=== PATIENT | male | born 1955 | race Caucasian/White ===

== ENCOUNTER 2018-10-31 22:25 | Observation (INO) ==
[2018-10-31 22:53] LABS: ABG Base Excess 1.5 mmol/L (-2.4-2.3); ABG HCO3 25.8 mmhg (22.0-26.0); ABG Oxygen Saturation 95 % (90-100); ABG PCO2 39.5 mmhg (35.0-45.0); ABG PH 7.43 mmol/L (7.35-7.45); ABG PO2 66.8 mmhg (80-100)
[2018-10-31 22:54] LABS: Allen's Test Y; Oxygen 2.5 %
[2018-10-31 22:59] LABS: Basophils # 0.1 K/mm3 (0-0.2); Basophils % 0.3 % (0.1-2.0); Eosinophils # 0.2 K/mm3 (0.0-0.4); Eosinophils % 1.1 % (0.1-12.0); Hematocrit 52.1 % (42.0-52.0); Hemoglobin 16.2 g/dL (14.1-18.0); Lymphocytes # 0.6 K/mm3 (0.7-4.5); Mean Corpuscular Volume 94.9 fl (80-94); Mean Platelet Volume 8.2 fl (7.4-10.4); Monocytes # 0.6 K/mm3 (0.1-1.0); Monocytes % 3.7 % (1.7-9.3); Neutrophils # 13.7 K/mm3 (1.8-7.8); Neutrophils % 90.8 % (37.0-80.0); Platelet Count 287 K/mm3 (142-424); Red Cell Distribution Width 14.3 % (11.5-17.5); White Blood Count 15.1 K/mm3 (4.8-10.8)
[2018-10-31 23:13] LABS: Alanine Aminotransferase 26 U/L (12-78); Albumin Level 4.2 gm/dL (3.4-5.0); Alkaline Phosphatase 87 U/L (46-116); Anion Gap 14.7 mEq/L (5-15); Aspartate Amino Transferase 24 U/L (15-37); Blood Urea Nitrogen 14 mg/dL (7-18); Carbon Dioxide 29 mmol/L (21.0-32.0); Chloride 90 mmol/L (98-107); Globulin 4.2 gm/dl (1.3-3.2); Glucose 98 mg/dL (74-106); Sodium 129 mmol/L (136-145); Total Protein,Serum 8.4 gm/dL (6.4-8.2)
[2018-11-01 00:05] LABS: Anisocytosis 1+; Eosinophils % 3 % (0-3); Lymphocytes % 5 % (10-50); Monocytes % 4 % (2-9); Neutrophils % 88 % (42-76); Total Cells Counted 100
--- NOTE | 2018-11-01 00:51 | Emergency Department Note ---
ED Disposition Clinical Impression: Tobacco use disorder, Acute exacerbation of chronic obstructive airways disease, SIRS (systemic inflammatory response syndrome), Hyponatremia Community acquired pneumonia Qualifiers: Laterality: left Lung location: lower lobe of lung Qualified Code(s): J18.1 - Lobar pneumonia, unspecified organism Disposition: Admitted as Observation Condition on Discharge: Good - Critical Care Critical Care Time: No Attestation: On 10/31/18, the high probability of a clinically significant, sudden or life threatening deterioration of the following system(s) required my full and direct attention, intervention and personal management. The time I documented below is in addition to time spent performing reported procedures but includes the following listed in this critical care notation. Medical Decision Making - Medical Records Medical records reviewed: Yes: I reviewed the patient's medical records. - Jovanni Inquiry Pt receiving controlled substance: No Vital Signs: 10/31/18 22:38 11/01/18 00:43 Temperature 101.1 F H 98.4 F Temperature Source Oral Oral Pulse Rate [Right Brachial] 128 H 93 H Respiratory Rate 42 H 17 Blood Pressure [Right Arm] 155/69 H 108/81 L Blood Pressure Mean [Right Arm] 97 90 Blood Pressure Source [Right Arm] Automatic Cuff Automatic Cuff Blood Pressure Position [Right Arm] Supine 02 Sat by Pulse Oximetry 87 L 94 L Oxygen Delivery Method Room Air Room Air - Lab Data Lab results reviewed: Yes: I reviewed the patient's lab results. Lab Results 10/31/18 22:43: Influenza Type A Ag Negative, Influenza Type B Ag Negative 10/31/18 22:46: WBC 15.1 H, RBC 5.50, Hgb 16.2, Hct 52.1 H, MCV 94.9 H, MCH 29.4, MCHC 31.0 L, RDW 14.3, Plt Count 287, MPV 8.2, Neut % (Auto) 90.8 H, Lymph % (Auto) 4.0 L, [place] % (Auto) 3.7, Eos % (Auto) 1.1, Baso % (Auto) 0.3, Neut # (Auto) 13.7 H, Lymph # (Auto) 0.6 L, [place] # (Auto) 0.6, Eos # (Auto) 0.2, Baso # (Auto) 0.1, Total Counted 100, Neutrophils % (Manual) 88 H, Lymphocytes % (Manual) 5 L, Monocytes % (Manual) 4, Eosinophils % (Manual) 3, Platelet Darling mate Normal, Anisocytosis 1+ 10/31/18 22:46: Sodium 129 L, Potassium 4.7, Chloride 90 L, Carbon Dioxide 29, Anion Gap 14.7, BUN 14, Creatinine 0.78, Estimated Creat Clear 62, Estimated GFR 100, Est GFR ( Amer) 121, Glucose 98, Calcium 10.0, Total Bilirubin 1.0, AST 24, ALT 26, Alkaline Phosphatase 87, Troponin I < 0.02, Total Protein 8.4 H, Albumin 4.2, Globulin 4.2 H, Albumin/Globulin Ratio 1.0 L 10/31/18 22:46: Lactate 1.2 10/31/18 22:52: Specimen Source R/r, O2 % 2.5, ABG pH 7.43, ABG pCO2 39.5, ABG pO2 66.8 L, ABG HCO3 25.8, ABG Total CO2 27.0, ABG O2 Saturation 95, ABG Base Excess 1.5, Momo Test Y Result diagrams: 10/31/18 22:46 10/31/18 22:46 Orders (Tests/Meds): ED MEDICATIONS Generic Name Dose Route Start Last Admin Trade Name Freq PRN Reason Stop Dose Admin Azithromycin 500 mg/ Sodium 250 mls @ 250 mls/hr 11/01/18 01:15 11/01/18 01:21 Chloride IV 11/15/18 01:14 250 mls/hr Q24H THAI Administration Protocol Ceftriaxone Sodium 1 gm/ 100 mls @ 200 mls/hr 11/01/18 01:15 11/01/18 01:08 Sodium Chloride IV 11/15/18 01:14 200 mls/hr Q24H THAI Administration Protocol Discontinued Medications Generic Name Dose Route Start Last Admin Trade Name Freq PRN Reason Stop Dose Admin Albuterol/Ipratropium 3 ml 10/31/18 22:34 Duoneb 3ml Neb IH 10/31/18 22:35 ONCE ONE Methylprednisolone Sodium Succinate 125 mg 11/01/18 01:06 11/01/18 01:21 Solu-Medrol 125mg/2ml Vial IV 11/01/18 01:07 125 mg ONCE ONE Administration ORDERS Category Date Time Status XR chest portable Stat Exams 10/31/18 22:34 Taken Blood Culture Stat Micro 10/31/18 22:46 Received Arterial Blood Gas Stat RT 10/31/18 22:34 Ordered - Radiology Data #1 Image(s): Chest Image Reviewed: Yes I reviewed the patient's radiology image Preliminary Findings: Abnormal (copd/lll inflitrate ) - ECG Data Tracing #1 Arrhythmias present: sinus tach Ischemic changes: non-specific ST-T wave changes - Physician Consults Physician Consulted: [email or web address] Reason -: Admission Resp/SOB HPI - General Chief Complaint: Shortness of Breath/Dyspnea Stated Complaint: sob Time Seen by Provider: 11/01/18 00:48 Mode of Arrival: Family Vehicle Source of Information: Patient, Medical Record Limitations: No Limitations Description of Symptoms (Recalled from ER Triage Doc. by RN): PT STATES IS HAVING "THAT COPD FLARED UP" AND "I THINK I WAITED TOO LONG" HE IS HUFFING AND PUFFING TO TRY TO BREATHE. HE HAS A PRODUCTIVE COUGH, AND A FEVER. PT IS A SMOKER AND HAS BEEN STILL SMOKING FOR 40+ YEARS. HE REPORTS NO ELECTRICITY IN HIS HOME AT THIS TIME, SO HE DOESN'T HAVE ACCESS TO HIS NEBULIZER - History of Present Illness pt with cough and congestion with hx of copd and tob use - no chest pain MD Complaint: shortness of breath, cough Onset (ago): day(s) Severity: moderate Known history of: COPD Associated symptoms: cough Treatment prior to arrival: none - Related Data Home Medications Medication Instructions Recorded Confirmed Albuterol Sulfate [Albuterol HFA 1 - 2 puffs IH Q4-6H PRN 10/31/18 10/31/18 Inhaler] Allergies Allergy/AdvReac Type Severity Reaction Status Date / Time No Known Allergies Allergy Verified 08/14/17 12:34 [facility] History - Hepatitis A Screen Drug use history?: No High risk sexual behaviors?: No History of sexually transmitted infection?: No Currently employed?: No Childcare worker?: No Do you have indoor plumbing?: Yes Do you have electricity?: Yes Attestation statement:: This patient has been screened for Hepatitis A risk factors. I have reviewed the patient's past medical history: Yes - Social History Smoking Status: Current every day smoker Tobacco Type: cigarettes # Packs/Day (cigarettes): 2 Alcohol Intake: never ROS Obtained: Yes All systems reviewed & no additional complaints - Constitutional Constitutional: Reports fever(s) - Eyes Eyes: Denies loss of vision - ENT Ears, Nose, Mouth, and Throat: Denies sore throat - Cardiovascular Cardiovascular: Reports as per HPI, Denies chest pain, Reports dyspnea - Respiratory Respiratory: Yes as per HPI, Yes change in phlegm color, Yes cough, No coughing up blood - Gastrointestinal Gastrointestingal: Reports: abdominal pain. Denies: nausea, vomiting - Genitourinary Male Genitourinary: Denies hematuria - Musculoskeletal Musculoskeletal: Denies joint pain - Integumentary/Breasts Skin/Breast: Denies rash - Neurologic Neurologic: Denies abnormal speech, Denies headache(s), Denies seizure-like activity Physical Exam - General General appearance: alert - Head Head exam: normocephalic - Eye Eye exam: Present: PERRL, EOMI. Absent: scleral icterus - ENT ENT exam: Present: mucous membranes dry - Neck Neck exam: Present: trachea midline - Respiratory Respiratory exam: Present: wheezes, prolonged expiratory phase - Cardiovascular Cardiovascular exam: Present: regular rate, systolic murmur, +S4 - Abdominal Exam Abdominal exam: Present: soft - Extremities Exam Extremities exam: Present: full ROM. Absent: calf tenderness - Neurological Exam Neurological exam: Present: alert, oriented X3, CN II-XII intact - Psychiatric Psychiatric exam: Present: normal affect - Skin Skin exam: Absent: rash
[2018-11-01 05:42] LABS: Hematocrit 44.7 % (42.0-52.0); Lymphocytes # 0.3 K/mm3 (0.7-4.5); Lymphocytes % 2.9 % (10-50); Mean Corpuscular HGB Conc 30.8 g/dL (31.8-35.4); Mean Platelet Volume 8.4 fl (7.4-10.4); Monocytes # 0.5 K/mm3 (0.1-1.0); Monocytes % 4.5 % (1.7-9.3); Neutrophils # 11.2 K/mm3 (1.8-7.8); Neutrophils % 92.6 % (37.0-80.0); Platelet Count 235 K/mm3 (142-424); Red Cell Distribution Width 14.1 % (11.5-17.5); White Blood Count 12.1 K/mm3 (4.8-10.8)
[2018-11-01 05:50] LABS: Hemoglobin 13.9 g/dL (14.1-18.0)
[2018-11-01 05:51] LABS: Anion Gap 11.5 mEq/L (5-15)
[2018-11-01 06:02] LABS: Calcium 8.8 mg/dL (8.5-10.1)
--- NOTE | 2018-11-01 07:35 | Pharmacy Consult Notes ---
[facility] Pharmacy VTE Monitoring - Patient Demographics Admission date: 11/01/18 Report Date: 11/01/18 Time: 07:35 Allergies/Adverse Reactions: Patient Allergies No Known Allergies Allergy (Verified 11/01/18 02:42) Height: 1.6 m Weight: 48.137 kg Patient Problems: Current Active Problems Acute exacerbation of chronic obstructive airways disease (Acute) Tobacco use disorder (Acute) Community acquired pneumonia (Acute) SIRS (systemic inflammatory response syndrome) (Acute) Hyponatremia (Acute) - VTE Risk Labs: VTE Related Lab Results Hgb 13.9 g/dL (14.1-18.0) L D 11/01/18 05:23 Hct 44.7 % (42.0-52.0) 11/01/18 05:23 Plt Count 235 K/mm3 (142-424) 11/01/18 05:23 BUN 16 mg/dL (7-18) 11/01/18 05:23 Creatinine 0.66 mg/dL (0.70-1.30) L 11/01/18 05:23 Estimated Creat Clear 51 mL/min (50-200) 11/01/18 05:23 Was VTE Risk Assessment Performed: Yes VTE Score: 4 VTE Risk Level: Low Risk - Prophylaxis VTE Prophylaxis Ordered?: Yes Types of VTE Prophylaxis: TEDS Knee High Location of Applied Device: Bilateral Lower Extremeties - VTE Diagnosis Confirmed Treatment or plan recommended: Continue Current Treatment
--- NOTE | 2018-11-01 08:39 | H&P/Discharge Summary ---
General - General Admission date:: 11/01/18 Discharge date: 11/01/18 *Admission Date: 11/01/18 *Chief complaint: Cough/congestion *History of present illness: 63-year-old white male who has by his choice of very limited access to healthcare and social contact, he lives "off the grid" so that "the government does not get involved" and has COPD, and has previously been treated by Dr. Tahira Garcia with inhalers, does not use oxygen at home or nebulizers because of a lack of electricity. He ran out of his inhalers a couple weeks ago and since that time is had increasing shortness of air and coughing and congestion, came to the emergency department, found to have COPD exacerbation, infiltrate and was admitted to the hospital. [facility] History I have reviewed the patient's past medical history: Yes Medical History: Denies:: Cancer, Diabetes Mellitus Type 1, Diabetes Mellitus Type 2, Internal Pacemaker, MRSA *Have you ever received a pneumonia vaccine?: No *Have you received a flu vaccine this season?: No Other Surgeries: No: Pacemaker Amputation: No Fractures: No - *Social History Educational Level: Attended Grade School Smoking Status: Current every day smoker Tobacco Type: cigarettes # Packs/Day (cigarettes): 2 Alcohol Intake: former Substance Use Type: marijuana Last Used Substance: days (ago) *Occupational Status:: disabled Housing: house Household Members: significant other *Travel in the last 8 weeks: None Family Hx:: No significant family history Review of Systems - Review of Systems Review of systems:: pertinent systems reviewed and negative unless documented below - Constitutional Reports anorexia, Reports fatigue, Reports fever(s), Reports malaise, Reports night sweats - Eyes Denies blind spots, Denies blurry vision, Denies change in vision - ENT Denies abnormal hearing, Denies bleeding gums, Denies poor balance, Denies dizziness - *Cardiovascular Reports shortness of breath, Reports shortness of breath with activity, Denies chest pain, Denies excessive sweating, Denies irregular heart rhythm - *Respiratory Reports change in phlegm color, Reports chest congestion, Reports shortness of breath with activity - *Gastrointestinal Denies abdominal pain, Denies belching, Denies bloating, Denies change in stools, Denies heartburn - *Musculoskeletal Denies abnormal walking - Integumentary/Breasts Denies acne - *Neurologic Denies abnormal speech, Denies headache(s), Denies loss of vision, Denies seizure-like activity - Hematologic/Lymphatic Denies easy bleeding Exam Vital signs and Labs for Last 24 Hours: Temp Pulse Resp BP Pulse Ox 98.2 F 93 H 30 H 115/60 94 L 11/01/18 04:00 11/01/18 04:00 11/01/18 04:00 11/01/18 04:00 11/01/18 04:00 Laboratory Results - last 24 hr 10/31/18 22:43: Influenza Type A Ag Negative, Influenza Type B Ag Negative 10/31/18 22:46: WBC 15.1 H, RBC 5.50, Hgb 16.2, Hct 52.1 H, MCV 94.9 H, MCH 29.4, MCHC 31.0 L, RDW 14.3, Plt Count 287, MPV 8.2, Neut % (Auto) 90.8 H, Lymph % (Auto) 4.0 L, [place] % (Auto) 3.7, Eos % (Auto) 1.1, Baso % (Auto) 0.3, Neut # (Auto) 13.7 H, Lymph # (Auto) 0.6 L, [place] # (Auto) 0.6, Eos # (Auto) 0.2, Baso # (Auto) 0.1, Total Counted 100, Neutrophils % (Manual) 88 H, Lymphocytes % (Manual) 5 L, Monocytes % (Manual) 4, Eosinophils % (Manual) 3, Platelet Estimate Normal, Anisocytosis 1+ 10/31/18 22:46: Sodium 129 L, Potassium 4.7, Chloride 90 L, Carbon Dioxide 29, Anion Gap 14.7, BUN 14, Creatinine 0.78, Estimated Creat Clear 62, Estimated GFR 100, Est GFR ( Amer) 121, Glucose 98, Calcium 10.0, Total Bilirubin 1.0, AST 24, ALT 26, Alkaline Phosphatase 87, Troponin I < 0.02, Total Protein 8.4 H, Albumin 4.2, Globulin 4.2 H, Albumin/Globulin Ratio 1.0 L 10/31/18 22:46: Lactate 1.2 10/31/18 22:52: Specimen Source R/r, O2 % 2.5, ABG pH 7.43, ABG pCO2 39.5, ABG pO2 66.8 L, ABG HCO3 25.8, ABG Total CO2 27.0, ABG O2 Saturation 95, ABG Base Excess 1.5, Momo Test Y 11/01/18 05:23: Troponin I < 0.02 11/01/18 05:23: WBC 12.1 H, RBC 4.70, Hgb 13.9 L D, Hct 44.7, MCV 95.0 H, MCH 29.3, MCHC 30.8 L, RDW 14.1, Plt Count 235, MPV 8.4, Neut % (Auto) 92.6 H, Lymph % (Auto) 2.9 L, [place] % (Auto) 4.5, Eos % (Auto) 0.0 L, Baso % (Auto) 0.0 L, Neut # (Auto) 11.2 H, Lymph # (Auto) 0.3 L, [place] # (Auto) 0.5, Eos # (Auto) 0.0, Baso # (Auto) 0.0 11/01/18 05:23: Sodium 129 L, Potassium 4.5, Chloride 94 L, Carbon Dioxide 28, Anion Gap 11.5, BUN 16, Creatinine 0.66 L, Estimated Creat Clear 51, Estimated GFR 122, Est GFR ( Amer) 147 D, Glucose 198 H D, Calcium 8.8 D, Magnesium 1.9 11/01/18 07:43: Troponin I < 0.02 I & O for Last 24 hours: Intake & Output 10/29/18 10/30/18 10/31/18 11/01/18 11:59 11:59 11:59 11:59 Intake Total 867 / 867 Balance 867 / 867 Weight 106 lb 2 oz Microbiology Reports for the Last 24 Hours: Microbiology 11/01/18 00:15 Sputum - Expectorated Sputum Gram Stain - Final Narrative: Patient is very thin and cachectic. Is alert and oriented but has some paranoid speech tendencies but does not appear to be actively hallucinating. He is significantly dirty and unkempt Lungs have rhonchi bilaterally, some crackles noted in the bases. Heart rate regular, no murmurs. Abdomen is scaphoid, no organomegaly. Extremities have no clubbing or edema. ENT exam shows edentulous oral cavity, no lesions. No JVD. Neurologic exam nonfocal. Hospital Course Hospital Course: Patient was admitted to the hospital and started on appropriate therapy for pneumonia and COPD. This morning patient states that he feels better and wishes to go home. I had a long discussion with him about his need to stay at least 1 more day given his relative hypoxia, and his lack of treatment options at home including nebulizer treatments and oxygen because of his lack of electricity. He maintains that he will not stay and "I do not want to sign the form but I will if he will let me go home." I would rather not send the patient home AMA but he is insistent on discharge. At this point I will prescribe him antibiotics, steroids and inhalers as he has no electricity for oxygen or nebulizers. He is in agreement to make an appointment for follow-up in our office and this will be done. Results Labs on day of discharge: Labs from last 24 hours 11/01/18 11/01/18 11/01/18 07:43 05:23 05:23 WBC 12.1 H RBC 4.70 Hgb 13.9 L D Hct 44.7 MCV 95.0 H MCH 29.3 MCHC 30.8 L RDW 14.1 Plt Count 235 MPV 8.4 Neut % (Auto) 92.6 H Lymph % (Auto) 2.9 L [place] % (Auto) 4.5 Eos % (Auto) 0.0 L Baso % (Auto) 0.0 L Neut # (Auto) 11.2 H Lymph # (Auto) 0.3 L [place] # (Auto) 0.5 Eos # (Auto) 0.0 Baso # (Auto) 0.0 Total Counted Neutrophils % (Manual) Lymphocytes % (Manual) Monocytes % (Manual) Eosinophils % (Manual) Platelet Estimate Anisocytosis Specimen Source O2 % ABG pH ABG pCO2 ABG pO2 ABG HCO3 ABG Total CO2 ABG O2 Saturation ABG Base Excess Momo Test Sodium 129 L Potassium 4.5 Chloride 94 L Carbon Dioxide 28 Anion Gap 11.5 BUN 16 Creatinine 0.66 L Estimated Creat Clear 51 Estimated GFR 122 Est GFR ( Amer) 147 D Glucose 198 H D Lactate Calcium 8.8 D Magnesium 1.9 Total Bilirubin AST ALT Alkaline Phosphatase Troponin I < 0.02 Total Protein Albumin Globulin Albumin/Globulin Ratio Influenza Type A Ag Influenza Type B Ag 11/01/18 10/31/18 10/31/18 05:23 22:52 22:46 WBC RBC Hgb Hct MCV MCH MCHC RDW Plt Count MPV Neut % (Auto) Lymph % (Auto) [place] % (Auto) Eos % (Auto) Baso % (Auto) Neut # (Auto) Lymph # (Auto) [place] # (Auto) Eos # (Auto) Baso # (Auto) Total Counted Neutrophils % (Manual) Lymphocytes % (Manual) Monocytes % (Manual) Eosinophils % (Manual) Platelet Estimate Anisocytosis Specimen Source R/r O2 % 2.5 ABG pH 7.43 ABG pCO2 39.5 ABG pO2 66.8 L ABG HCO3 25.8 ABG Total CO2 27.0 ABG O2 Saturation 95 ABG Base Excess 1.5 Momo Test Y Sodium Potassium Chloride Carbon Dioxide Anion Gap BUN Creatinine Estimated Creat Clear Estimated GFR Est GFR ( Amer) Glucose Lactate 1.2 Calcium Magnesium Total Bilirubin AST ALT Alkaline Phosphatase Troponin I < 0.02 Total Protein Albumin Globulin Albumin/Globulin Ratio Influenza Type A Ag Influenza Type B Ag 10/31/18 10/31/18 10/31/18 22:46 22:46 22:43 WBC 15.1 H RBC 5.50 Hgb 16.2 Hct 52.1 H MCV 94.9 H MCH 29.4 MCHC 31.0 L RDW 14.3 Plt Count 287 MPV 8.2 Neut % (Auto) 90.8 H Lymph % (Auto) 4.0 L [place] % (Auto) 3.7 Eos % (Auto) 1.1 Baso % (Auto) 0.3 Neut # (Auto) 13.7 H Lymph # (Auto) 0.6 L [place] # (Auto) 0.6 Eos # (Auto) 0.2 Baso # (Auto) 0.1 Total Counted 100 Neutrophils % (Manual) 88 H Lymphocytes % (Manual) 5 L Monocytes % (Manual) 4 Eosinophils % (Manual) 3 Platelet Estimate Normal Anisocytosis 1+ Specimen Source O2 % ABG pH ABG pCO2 ABG pO2 ABG HCO3 ABG Total CO2 ABG O2 Saturation ABG Base Excess Momo Test Sodium 129 L Potassium 4.7 Chloride 90 L Carbon Dioxide 29 Anion Gap 14.7 BUN 14 Creatinine 0.78 Estimated Creat Clear 62 Estimated GFR 100 Est GFR ( Amer) 121 Glucose 98 Lactate Calcium 10.0 Magnesium Total Bilirubin 1.0 AST 24 ALT 26 Alkaline Phosphatase 87 Troponin I < 0.02 Total Protein 8.4 H Albumin 4.2 Globulin 4.2 H Albumin/Globulin Ratio 1.0 L Influenza Type A Ag Negative Influenza Type B Ag Negative DS: Diagnosis - Discharge Diagnosis (1) Acute exacerbation of chronic obstructive airways disease Status: Acute (2) Community acquired pneumonia Status: Acute Discharge Plan - Patient Discharge Instructions ACTIVITY: Continue current activity DIET: continue same diet Patient Instructions: DI for Pneumonia -- Adult, DI for Hyponatremia, DI for Shortness of Breath - Follow up Plan Follow up with: Mony Moreno APRN [Nurse Practitioner] - 11/04/18 Disposition: Home, Self-Usp Medications: Home Medications Medication Instructions Recorded Confirmed Type Albuterol Sulfate [Albuterol HFA 1 - 2 puffs IH Q4-6H PRN #1 11/01/18 Rx Inhaler] [email or web address] Azithromycin [Zithromax 250mg 250 mg PO DIRECTED #6 tab 11/01/18 Rx tab] Azithromycin [Zithromax 250mg 250 mg PO DIRECTED #6 tab 11/01/18 Rx tab] Budesonide/Formoterol Fumarate 10.2 gm IH BID #1 hfa.aer.ad 11/01/18 Rx [Symbicort 160-4.5 Mcg Inhaler] Cefdinir [Omnicef 300mg Capsule] 300 mg PO BID #14 cap 11/01/18 Rx Cefdinir [Omnicef 300mg Capsule] 300 mg PO BID #14 cap 11/01/18 Rx predniSONE [Deltasone 20mg 20 mg PO BID 7 Days #14 tab 11/01/18 Rx tablet] predniSONE [Deltasone 20mg 20 mg PO BID 7 Days #14 tab 11/01/18 Rx tablet] Prescriptions/Medication Reconciliation: New predniSONE [Deltasone 20mg tablet] 20 mg PO BID 7 Days #14 tab predniSONE [Deltasone 20mg tablet] 20 mg PO BID 7 Days #14 tab Cefdinir [Omnicef 300mg Capsule] 300 mg PO BID #14 cap Cefdinir [Omnicef 300mg Capsule] 300 mg PO BID #14 cap Budesonide/Formoterol Fumarate [Symbicort 160-4.5 Mcg Inhaler] 10.2 gm IH BID #1 hfa.[email or web address] Azithromycin [Zithromax 250mg tab] 250 mg PO DIRECTED #6 tab Azithromycin [Zithromax 250mg tab] 250 mg PO DIRECTED #6 tab Continued Albuterol Sulfate [Albuterol HFA Inhaler] 1 - 2 puffs IH Q4-6H PRN #1 hfa.[email or web address] PRN Reason: Shortness Of Breath Or Wheezing - Problem Reconciliation Problems Reviewed?: Yes
--- NOTE | 2018-11-03 09:46 | Electrocardiograph Report ---
APPROVED REPORT Exam: Resting ECG HR:125 bpm ECG Measurements Heart Rate 125 AXES MS 124 P 79 QRSd 78 QRS 93 QT 312 T65 QTc 450 <Conclusion> Sinus tachycardia with premature atrial complexes Rightward axis Borderline ECG Electronically signed by : Dale Pepper, 11/03/2018 09:46:12
== END 2018-11-01 11:23 | disposition home or self-care (01) ==
LOC: ER 22:25 → 2ND 11-01 01:15 → INTOOBSV 11-01 02:17 → 2ND 11-01 02:17
PROVIDERS: ADMIT Internal Medicine Adolescent Medicine; ATTEND Internal Medicine Adolescent Medicine
CPT/HCPCS: 36415; 71010; 71045; 80048; 80053; 82803; 83605; 83735; 84484; 85007; 85025; 87040; 87070; 87077; 87186; 87205; 87275; 87276; 93005; 94760; 96365; 96375; 99284; G0378; J0456

== ENCOUNTER 2019-01-16 14:29 | Observation (INO) ==
[2019-01-16 14:52] LABS: ABG Base Excess 8.8 mmol/L (-2.4-2.3); ABG HCO3 37.9 mmhg (22.0-26.0); ABG Oxygen Saturation 99 % (90-100); ABG PO2 205.7 mmhg (80-100); ABG TCO2 41.4 mmhg (23-27)
[2019-01-16 14:54] LABS: Basophils % 0.2 % (0.1-2.0); Eosinophils # 0.1 K/mm3 (0.0-0.4); Eosinophils % 0.7 % (0.1-12.0); Hematocrit 48.4 % (42.0-52.0); Hemoglobin 15.6 g/dL (14.1-18.0); Lymphocytes # 1.3 K/mm3 (0.7-4.5); Lymphocytes % 8.2 % (10-50); Mean Corpuscular HGB Conc 32.2 g/dL (31.8-35.4); Mean Corpuscular Volume 95.7 fl (80-94); Mean Platelet Volume 8.6 fl (7.4-10.4); Monocytes % 6.4 % (1.7-9.3); Neutrophils # 12.9 K/mm3 (1.8-7.8); Neutrophils % 84.4 % (37.0-80.0); Platelet Count 370 K/mm3 (142-424); Red Blood Count 5.05 M/mm3 (4.60-6.20); Red Cell Distribution Width 14.2 % (11.5-17.5); White Blood Count 15.3 K/mm3 (4.8-10.8)
[2019-01-16 14:54] LABS: Oxygen 100 %
[2019-01-16 14:55] LABS: ABG PCO2 114.9 mmhg (35.0-45.0); ABG PH 7.14 mmol/L (7.35-7.45)
--- NOTE | 2019-01-16 15:02 | Emergency Department Note ---
ED Disposition Clinical Impression: COPD exacerbation Acute respiratory failure Qualifiers: Respiratory failure complication: hypoxia and hypercapnia Qualified Code(s): J96.01 - Acute respiratory failure with hypoxia Community acquired pneumonia Qualifiers: Laterality: left Lung location: lower lobe of lung Qualified Code(s): J18.9 - Pneumonia, unspecified organism Disposition: Admitted As Inpatient Condition on Discharge: Serious - Critical Care Critical Care Time: Yes Attestation: On 01/16/19, the high probability of a clinically significant, sudden or life threatening deterioration of the following system(s) required my full and direct attention, intervention and personal management. The time I documented below is in addition to time spent performing reported procedures but includes the following listed in this critical care notation. Total Critical Care Time: 30 Vital system(s) involved:: Respiratory Failure My critical care processes included: Assessment & monitoring of V/S, Initial and Re-exams, Data Review/Interpretation, Coordinating Care, Medication Orders and management, Documentation Medical Decision Making - Jovanni Inquiry Pt receiving controlled substance: No Vital Signs: 01/16/19 14:33 01/16/19 14:45 01/16/19 15:26 Temperature 98 F Temperature Source Oral Pulse Rate Pulse Rate [Right] 117 H 78 89 Respiratory Rate 26 H 18 Blood Pressure [Right Arm] 156/96 H 156/96 H 167/107 H Blood Pressure Mean [Right Arm] 116 116 127 Blood Pressure Source [Right Arm] Blood Pressure Position [Right Arm] Sitting 02 Sat by Pulse Oximetry 81 L 100 95 Oxygen Delivery Method Room Air Nasal Cannula BiPAP Oxygen Flow Rate (LPM) 3 01/16/19 15:30 01/16/19 16:06 01/16/19 16:11 Temperature 98.0 F Temperature Source Oral Pulse Rate 111 H Pulse Rate [Right] 96 H 60 Respiratory Rate 17 Blood Pressure [Right Arm] 167/101 H 147/85 H Blood Pressure Mean [Right Arm] 123 105 Blood Pressure Source [Right Arm] Automatic Cuff Blood Pressure Position [Right Arm] Sitting Supine 02 Sat by Pulse Oximetry 95 95 Oxygen Delivery Method BiPAP Room Air Oxygen Flow Rate (LPM) - Lab Data Lab Results 01/16/19 14:35: WBC 15.3 H, RBC 5.05, Hgb 15.6, Hct 48.4, MCV 95.7 H, MCH 30.8, MCHC 32.2, RDW 14.2, Plt Count 370, MPV 8.6, Neut % (Auto) 84.4 H, Lymph % (Auto) 8.2 L, [place] % (Auto) 6.4, Eos % (Auto) 0.7, Baso % (Auto) 0.2, Neut # (Auto) 12.9 H, Lymph # (Auto) 1.3, [place] # (Auto) 1.0, Eos # (Auto) 0.1, Baso # (Auto) 0.0, Total Counted 100, Neutrophils % (Manual) 85 H, Band Neutrophils % 2.0, Lymphocytes % (Manual) 9 L, Monocytes % (Manual) 4, Platelet Estimate Normal, RBC Morphology Normal 01/16/19 14:35: B-Natriuretic Peptide 125 H 01/16/19 14:48: Specimen Source L brachial, O2 % 100, ABG pH 7.14 L*, ABG pCO2 114.9 H, ABG pO2 205.7 H, ABG HCO3 37.9 H, ABG Total CO2 41.4 H, ABG O2 Saturation 99, ABG Base Excess 8.8 H 01/16/19 15:00: Influenza Type A Ag Negative, Influenza Type B Ag Negative 01/16/19 15:18: Sodium 139, Potassium 4.3, Chloride 99, Carbon Dioxide 33 H, Anion Gap 11.3, BUN 14, Creatinine 0.47 L, Estimated Creat Clear 62, Estimated GFR 180, Est GFR ( Amer) 218, Glucose 144 H, Calcium 8.7, Total Bilirubin 0.5, AST 29, ALT 36, Alkaline Phosphatase 98, Troponin I < 0.02, Total Protein 7.6, Albumin 3.8, Globulin 3.8 H, Albumin/Globulin Ratio 1.0 L 01/16/19 15:18: Lactate 0.7 Result diagrams: 01/16/19 14:35 01/16/19 15:18 Orders (Tests/Meds): ED MEDICATIONS Generic Name Dose Route Start Last Admin Trade Name Freq PRN Reason Stop Dose Admin Ceftriaxone Sodium 1 gm/ 50 mls @ 100 mls/hr 01/16/19 15:00 01/16/19 15:08 Sodium Chloride IV 01/30/19 14:59 100 mls/hr Q24H THAI Administration Protocol Azithromycin 500 mg/ Sodium 250 mls @ 250 mls/hr 01/16/19 15:00 Chloride IV 01/30/19 14:59 Q24H THAI Protocol Discontinued Medications Generic Name Dose Route Start Last Admin Trade Name Freq PRN Reason Stop Dose Admin Albuterol/Ipratropium 3 ml 01/16/19 14:32 01/16/19 14:52 Duoneb 3ml Neb IH 01/16/19 14:33 3 ml ONCE ONE Administration Methylprednisolone Sodium Succinate 125 mg 01/16/19 14:32 01/16/19 14:52 Solu-Medrol 125mg/2ml Vial IV 01/16/19 14:33 125 mg ONCE ONE Administration ORDERS Category Date Time Status Troponin I Q3H Lab 01/16/19 17:45 Ordered Troponin I Q3H Lab 01/16/19 20:45 Ordered Blood Culture Stat Micro 01/16/19 14:35 Received - Radiology Data #1 Image(s): Chest Image Reviewed: Yes I reviewed the patient's radiology image, Yes I have reviewed radiologist's interpretation FINDINGS: The heart is not enlarged. There is an atherosclerotic aorta without CHF. Pulmonary vascularity are within normal limits. There is focal increased density in the left lung base at the hemidiaphragm increased from previous exam 11/18/2018. Acute pneumonia is suspected. Lungs are markedly emphysematous. No acute bony abnormalities. Old fractures posterior left ribs. IMPRESSION: Small amount of new left basilar infiltrate. Severe COPD. Dictated by: Kenneth Wilson 01/16/2019 14:55 Electronically signed by Kenneth Wilson in [place] 01/16/2019 14:55 - ECG Data Tracing #1 EKG interpreted by Rickey Martinez MD: Rhythm: sinus tachycardia Rate: 111 [place]: normal Ectopy: Premature supraventricular contractions Conduction: normal ST Segment Changes: none T Wave Changes: none Q Waves: none No evidence of acute ischemia or injury Baseline artifact and wander present, but I consider the EKG adequate for accurate interpretation. - Physician Consults Physician Consulted: Evgeny Time: 16:49 Reason -: Admission Comment/Response: Agrees to admit the patient to the hospital. We discussed the patient's clinical information, including history, exam, laboratory and radiolog y results and ED course. Per hospital procedure, I will write temporary bridge inpatient orders on the patient. Specific orders requested by the admitting physician: Continue BiPAP, antibiotics, steroids, nebulizer treatments. Repeat arterial blood gases in the morning. Medical Decision Narrative: Review of patient's record shows that he was admitted here in October, less than 90 days ago, but was only in the hospital for 1 day. Does not meet criteria for healthcare associated pneumonia. 3:50 PM: Patient does not tolerate BiPAP well. He keeps insisting "there is too much pressure". Respiratory therapy was called and has adjusted his pressures downward. If he refuses to wear BiPAP we will resort to Vapotherm. The patient has been instructed by myself, nursing staff, and respiratory therapist that he needs the BiPAP and that it is life-threatening if he refuses to wear it, he understands. Despite being hypercapnic. He is awake, alert, and appears to have intact decision-making capacity. General Adult HPI - General Chief complaint: Shortness of Breath/Dyspnea Stated complaint: respiratory distress Time Seen by Provider: 01/16/19 14:35 Mode of Arrival: Wheelchair Limitations: No Limitations Description of Symptoms (Recalled from ER Triage Doc. by RN): C/O soa and feverish for 2-3 days. Pt states he does have COPD. - History of Present Illness HPI narrative: States he has shortness of breath, productive cough since last night. He has COPD. He is a smoker. He says he is not on oxygen at home, but he is on an inhaler and he has been "hitting the hell out of it". Feels hot, but no documented fever. - Related Data Previous Rx's Medication Instructions Recorded Albuterol Sulfate [Albuterol HFA 1 - 2 puffs IH Q4-6H PRN #1 11/01/18 Inhaler] hfa.[email or web address] Azithromycin [Zithromax 250mg 250 mg PO DIRECTED #6 tab 11/01/18 tab] Budesonide/Formoterol Fumarate 10.2 gm IH BID #1 hfa.aer.ad 11/01/18 [Symbicort 160-4.5 Mcg Inhaler] Cefdinir [Omnicef 300mg Capsule] 300 mg PO BID #14 cap 11/01/18 predniSONE [Deltasone 20mg 20 mg PO BID 7 Days #14 tab 11/01/18 tablet] Albuterol Sulfate [Albuterol HFA 1 puff IH Q4HP PRN #1 inh 11/18/18 Inhaler] Doxycycline Hyclate [Doxycycline 100 mg PO BID 8 Days #16 cap 11/18/18 100mg Capsule] predniSONE [Prednisone 50mg Tab] 50 mg PO DAILY 5 Days #5 tab 11/18/18 Allergies Allergy/AdvReac Type Severity Reaction Status Date / Time No Known Allergies Allergy Verified 11/01/18 02:42 [facility] History - Hepatitis A Screen Drug use history?: No High risk sexual behaviors?: No History of sexually transmitted infection?: No Currently employed?: No Childcare worker?: No Do you have indoor plumbing?: Yes Do you have electricity?: Yes Attestation statement:: This patient has been screened for Hepatitis A risk factors. I have reviewed the patient's past medical history: Yes Medical History: Denies:: Cancer, Diabetes Mellitus Type 1, Diabetes Mellitus Type 2, Internal Pacemaker, MRSA Other Surgeries: No: Pacemaker Amputation: No Fractures: No - Social History Smoking Status: Current every day smoker Tobacco Type: cigarettes # Packs/Day (cigarettes): 1 Alcohol Intake: never Substance Use Type: marijuana Occupational Status: disabled Housing: house Household Members: significant other Family Hx:: No significant family history ROS Obtained: Yes All systems reviewed & no additional complaints - Constitutional Constitutional: Reports as per HPI - Cardiovascular Cardiovascular: Denies chest pain - Respiratory Respiratory: Yes cough, Yes dyspnea - Gastrointestinal Gastrointestingal: Denies: abdominal pain, diarrhea, vomiting Physical Exam - General General appearance: alert, in distress (Respiratory distress), cachectic Comment: unkempt - Head Head exam: atraumatic, normocephalic - Eye Eye exam: Present: normal appearance, EOMI - ENT ENT exam: Present: mucous membranes moist - Neck Neck exam: Present: normal inspection, trachea midline - Chest Chest inspection: Present: normal inspection, symmetric chest wall rise - Respiratory Respiratory exam: Present: accessory muscle use, prolonged expiratory phase, other (Decreased breath sounds bilaterally) - Cardiovascular Cardiovascular exam: Present: normal rhythm, tachycardia - Abdominal Exam Abdominal exam: Present: soft, normal bowel sounds. Absent: distention, tenderness, guarding - Extremities Exam Extremities exam: Present: normal inspection - Neurological Exam Neurological exam: Present: alert, oriented X3 - Psychiatric Psychiatric exam: Present: anxious - Skin Skin exam: Present: warm, dry
[2019-01-16 15:12] LABS: Lymphocytes % 9 % (10-50); Monocytes % 4 % (2-9); Neutrophils % 85 % (42-76); RBC Morphology Normal; Total Cells Counted 100
[2019-01-16 15:41] LABS: Alanine Aminotransferase 36 U/L (12-78); Albumin Level 3.8 gm/dL (3.4-5.0); Alkaline Phosphatase 98 U/L (46-116); Anion Gap 11.3 mEq/L (5-15); Aspartate Amino Transferase 29 U/L (15-37); Bilirubin,Total 0.5 mg/dL (0.2-1.0); Blood Urea Nitrogen 14 mg/dL (7-18); Calcium 8.7 mg/dL (8.5-10.1); Carbon Dioxide 33 mmol/L (21.0-32.0); Chloride 99 mmol/L (98-107); Globulin 3.8 gm/dl (1.3-3.2); Glucose 144 mg/dL (74-106); Sodium 139 mmol/L (136-145); Total Protein,Serum 7.6 gm/dL (6.4-8.2)
[2019-01-17 06:47] LABS: ABG Base Excess 4.7 mmol/L (-2.4-2.3); ABG HCO3 29.5 mmhg (22.0-26.0); ABG Oxygen Saturation 96 % (90-100); ABG PCO2 48.5 mmhg (35.0-45.0); ABG PO2 77.6 mmhg (80-100); Oxygen 35% %
[2019-01-17 06:48] LABS: Allen's Test ACCEPTABLE; Tidal Volume BIPAP 13/7
--- NOTE | 2019-01-17 08:18 | Pharmacy Consult Notes ---
[facility] Pharmacy VTE Monitoring - Patient Demographics Admission date: 01/16/19 Report Date: 01/17/19 Time: 08:18 Allergies/Adverse Reactions: Patient Allergies No Known Allergies Allergy (Verified 11/01/18 02:42) Height: 1.6 m Weight: 46.465 kg Patient Problems: Current Active Problems COPD exacerbation (Acute) Community acquired pneumonia (Acute) Acute respiratory failure (Acute) - VTE Risk Labs: VTE Related Lab Results Hgb 15.6 g/dL (14.1-18.0) 01/16/19 14:35 Hct 48.4 % (42.0-52.0) 01/16/19 14:35 Plt Count 370 K/mm3 (142-424) 01/16/19 14:35 BUN 14 mg/dL (7-18) 01/16/19 15:18 Creatinine 0.47 mg/dL (0.70-1.30) L 01/16/19 15:18 Estimated Creat Clear 62 mL/min (50-200) 01/16/19 15:18 VTE Score: 4 VTE Risk Level: Low Risk - Prophylaxis VTE Prophylaxis Ordered?: Yes Types of VTE Prophylaxis: TEDS Knee High Location of Applied Device: Bilateral Lower Extremeties - VTE Diagnosis Confirmed Treatment or plan recommended: Continue Current Treatment
--- NOTE | 2019-01-17 08:31 | H&P/Discharge Summary ---
General - General Admission date:: 01/16/19 Discharge date: 01/17/19 *Admission Date: 01/16/19 *Chief complaint: Shortness of air and cough *History of present illness: 63-year-old white male with extremely fragmented medical history and multiple psychosocial issues, who lives in a [place] in [facility] [place] grid" with his dog and assistance from friends. He smokes heavily including tobacco and marijuana, and has a long history of COPD. He maintains that he is compliant with his Symbicort and rescue inhalers at home, but over the past couple of days had significant respiratory distress and dyspnea. Came to the emergency department B via EMS in significant respiratory distress, was almost intubated but recovered with BiPAP therapy and was noted to have significant respiratory acidosis and was admitted overnight for IV antibiotics IV steroids and IV fluids. [facility] History I have reviewed the patient's past medical history: Yes Medical History: Denies:: Cancer, Diabetes Mellitus Type 1, Diabetes Mellitus Type 2, Internal Pacemaker, MRSA *Have you ever received a pneumonia vaccine?: No *Have you received a flu vaccine this season?: No Other Surgeries: No: Pacemaker Amputation: No Fractures: No - *Social History Educational Level: Attended Grade School Smoking Status: Current every day smoker Tobacco Type: cigarettes # Packs/Day (cigarettes): 2 Alcohol Intake: former Substance Use Type: marijuana *Occupational Status:: disabled Housing: house Household Members: significant other *Travel in the last 8 weeks: None Family Hx:: No significant family history Review of Systems - Review of Systems Review of systems:: pertinent systems reviewed and negative unless documented below Given patient's pressured speech and tangential thinking is difficult to get a review of systems from this morning but he states he feels "100% better and I want to go home." Exam Vital signs and Labs for Last 24 Hours: Temp Pulse Resp BP Pulse Ox 97.6 F 94 H 21 109/70 L 96 01/17/19 04:00 01/17/19 06:08 01/17/19 04:00 01/17/19 04:00 01/17/19 04:00 Laboratory Results - last 24 hr 01/16/19 14:35: WBC 15.3 H, RBC 5.05, Hgb 15.6, Hct 48.4, MCV 95.7 H, MCH 30.8, MCHC 32.2, RDW 14.2, Plt Count 370, MPV 8.6, Neut % (Auto) 84.4 H, Lymph % (Auto) 8.2 L, [place] % (Auto) 6.4, Eos % (Auto) 0.7, Baso % (Auto) 0.2, Neut # (Auto) 12.9 H, Lymph # (Auto) 1.3, [place] # (Auto) 1.0, Eos # (Auto) 0.1, Baso # (Auto) 0.0, Total Counted 100, Neutrophils % (Manual) 85 H, Band Neutrophils % 2.0, Lymphocytes % (Manual) 9 L, Monocytes % (Manual) 4, Platelet Estimate Normal, RBC Morphology Normal 01/16/19 14:35: B-Natriuretic Peptide 125 H 01/16/19 14:48: Specimen Source L brachial, O2 % 100, ABG pH 7.14 L*, ABG pCO2 114.9 H, ABG pO2 205.7 H, ABG HCO3 37.9 H, ABG Total CO2 41.4 H, ABG O2 Saturation 99, ABG Base Excess 8.8 H 01/16/19 15:00: Influenza Type A Ag Negative, Influenza Type B Ag Negative 01/16/19 15:18: Sodium 139, Potassium 4.3, Chloride 99, Carbon Dioxide 33 H, Anion Gap 11.3, BUN 14, Creatinine 0.47 L, Estimated Creat Clear 62, Estimated GFR 180, Est GFR ( Amer) 218, Glucose 144 H, Calcium 8.7, Total Bilirubin 0.5, AST 29, ALT 36, Alkaline Phosphatase 98, Troponin I < 0.02, Total Protein 7.6, Albumin 3.8, Globulin 3.8 H, Albumin/Globulin Ratio 1.0 L 01/16/19 15:18: Lactate 0.7 01/16/19 17:48: Troponin I < 0.02 01/16/19 20:33: Troponin I < 0.02 01/17/19 06:00: Specimen Source R radial, O2 % 35%, ABG pH 7.40, ABG pCO2 48.5 H , ABG pO2 77.6 L, ABG HCO3 29.5 H, ABG Total CO2 31.0 H, ABG O2 Saturation 96, ABG Base Excess 4.7 H, Momo Test Acceptable, Tidal Volume Bipap 13/7 I & O for Last 24 hours: Intake & Output 01/14/19 01/15/19 01/16/19 01/17/19 11:59 11:59 11:59 11:59 Intake Total 1179 / 1179 Output Total 600 / 600 Balance 579 / 579 Weight 102 lb 7 oz Narrative: Alert, oriented x3. Oropharynx dry but clear. Edentulous. Patient has significant stigmata of COPD with barrel chest, depressed air movement. No crackles today. Lots of rhonchi. Abdomen soft and nontender. Heart rate regular. No clubbing, no cyanosis, no edema. Neurologic exam intact. No skin rashes or evidence of trauma. Hospital Course Hospital Course: Patient was placed on IV antibiotics, steroids and fluids, BiPAP was discontinued through the night, ABG improved nicely. This morning off BiPAP maintained a pH of 7.4. Patient this morning wishes to be discharged. He states that if I do not discharge him he will leave AMA. As a result I will prescribe steroids, antibiotics, we will get his inhalers refilled and we will schedule outpatient follow-up. Results Labs on day of discharge: Labs from last 24 hours 01/17/19 01/16/19 01/16/19 06:00 20:33 17:48 WBC RBC Hgb Hct MCV MCH MCHC RDW Plt Count MPV Neut % (Auto) Lymph % (Auto) [place] % (Auto) Eos % (Auto) Baso % (Auto) Neut # (Auto) Lymph # (Auto) [place] # (Auto) Eos # (Auto) Baso # (Auto) Total Counted Neutrophils % (Manual) Band Neutrophils % Lymphocytes % (Manual) Monocytes % (Manual) Platelet Estimate RBC Morphology Specimen Source R radial O2 % 35% ABG pH 7.40 ABG pCO2 48.5 H ABG pO2 77.6 L ABG HCO3 29.5 H ABG Total CO2 31.0 H ABG O2 Saturation 96 ABG Base Excess 4.7 H Momo Test Acceptable Tidal Volume Bipap 13/7 Sodium Potassium Chloride Carbon Dioxide Anion Gap BUN Creatinine Estimated Creat Clear Estimated GFR Est GFR ( Amer) Glucose Lactate Calcium Total Bilirubin AST ALT Alkaline Phosphatase Troponin I < 0.02 < 0.02 B-Natriuretic Peptide Total Protein Albumin Globulin Albumin/Globulin Ratio Influenza Type A Ag Influenza Type B Ag 01/16/19 01/16/19 01/16/19 15:18 15:18 15:00 WBC RBC Hgb Hct MCV MCH MCHC RDW Plt Count MPV Neut % (Auto) Lymph % (Auto) [place] % (Auto) Eos % (Auto) Baso % (Auto) Neut # (Auto) Lymph # (Auto) [place] # (Auto) Eos # (Auto) Baso # (Auto) Total Counted Neutrophils % (Manual) Band Neutrophils % Lymphocytes % (Manual) Monocytes % (Manual) Platelet Estimate RBC Morphology Specimen Source O2 % ABG pH ABG pCO2 ABG pO2 ABG HCO3 ABG Total CO2 ABG O2 Saturation ABG Base Excess Momo Test Tidal Volume Sodium 139 Potassium 4.3 Chloride 99 Carbon Dioxide 33 H Anion Gap 11.3 BUN 14 Creatinine 0.47 L Estimated Creat Clear 62 Estimated GFR 180 Est GFR ( Amer) 218 Glucose 144 H Lactate 0.7 Calcium 8.7 Total Bilirubin 0.5 AST 29 ALT 36 Alkaline Phosphatase 98 Troponin I < 0.02 B-Natriuretic Peptide Total Protein 7.6 Albumin 3.8 Globulin 3.8 H Albumin/Globulin Ratio 1.0 L Influenza Type A Ag Negative Influenza Type B Ag Negative 01/16/19 01/16/19 01/16/19 14:48 14:35 14:35 WBC 15.3 H RBC 5.05 Hgb 15.6 Hct 48.4 MCV 95.7 H MCH 30.8 MCHC 32.2 RDW 14.2 Plt Count 370 MPV 8.6 Neut % (Auto) 84.4 H Lymph % (Auto) 8.2 L [place] % (Auto) 6.4 Eos % (Auto) 0.7 Baso % (Auto) 0.2 Neut # (Auto) 12.9 H Lymph # (Auto) 1.3 [place] # (Auto) 1.0 Eos # (Auto) 0.1 Baso # (Auto) 0.0 Total Counted 100 Neutrophils % (Manual) 85 H Band Neutrophils % 2.0 Lymphocytes % (Manual) 9 L Monocytes % (Manual) 4 Platelet Estimate Normal RBC Morphology Normal Specimen Source L brachial O2 % 100 ABG pH 7.14 L* ABG pCO2 114.9 H ABG pO2 205.7 H ABG HCO3 37.9 H ABG Total CO2 41.4 H ABG O2 Saturation 99 ABG Base Excess 8.8 H Momo Test Tidal Volume Sodium Potassium Chloride Carbon Dioxide Anion Gap BUN Creatinine Estimated Creat Clear Estimated GFR Est GFR ( Amer) Glucose Lactate Calcium Total Bilirubin AST ALT Alkaline Phosphatase Troponin I B-Natriuretic Peptide 125 H Total Protein Albumin Globulin Albumin/Globulin Ratio Influenza Type A Ag Influenza Type B Ag DS: Diagnosis - Discharge Diagnosis (1) Acute respiratory failure Status: Acute (2) COPD exacerbation Status: Acute (3) Community acquired pneumonia Status: Acute (4) Acute exacerbation of chronic obstructive airways disease Status: Acute Discharge Plan - Patient Discharge Instructions ACTIVITY: Continue current activity DIET: continue same diet Patient Instructions: DI for Pneumonia -- Adult, DI for Respiratory Failure - Follow up Plan Follow up with: Mony Moreno APRN [Nurse Practitioner] - 01/23/19 Disposition: Home, Self-Residential Medications: Home Medications Medication Instructions Recorded Confirmed Type Budesonide/Formoterol Fumarate 10.2 gm IH BID 01/16/19 01/16/19 History [Symbicort 160-4.5 Mcg Inhaler] Fluticasone/Vilanterol [Breo 1 puff INHALATION DAILY 01/16/19 01/16/19 History Ellipta 100-25 Mcg INH] Albuterol Sulfate [Albuterol HFA 1 - 2 puffs IH Q4-6H PRN #1 01/17/19 Rx Inhaler] hfa.aer.ad Azithromycin [Zithromax 250mg 250 mg PO DIRECTED #6 tab 01/17/19 Rx tab] Cefdinir [Omnicef 300mg Capsule] 300 mg PO BID #14 cap 01/17/19 Rx predniSONE [Deltasone 20mg 20 mg PO BID 7 Days #14 tab 01/17/19 Rx tablet] Prescriptions/Medication Reconciliation: New predniSONE [Deltasone 20mg tablet] 20 mg PO BID 7 Days #14 tab Cefdinir [Omnicef 300mg Capsule] 300 mg PO BID #14 cap Azithromycin [Zithromax 250mg tab] 250 mg PO DIRECTED #6 tab Continued Albuterol Sulfate [Albuterol HFA Inhaler] 1 - 2 puffs IH Q4-6H PRN #1 hfa.aer.ad PRN Reason: Shortness Of Breath Or Wheezing Fluticasone/Vilanterol [Breo Ellipta 100-25 Mcg INH] 1 puff INHALATION DAILY Discontinued Budesonide/Formoterol Fumarate [Symbicort 160-4.5 Mcg Inhaler] 10.2 gm IH BID - Problem Reconciliation Problems Reviewed?: Yes
--- NOTE | 2019-01-17 12:05 | Electrocardiograph Report ---
APPROVED REPORT Exam: Resting ECG HR:111 bpm ECG Measurements Heart Rate 111 AXES TX 118 P 87 QRSd 74 QRS 89 QT 338 T85 QTc 459 <Conclusion> Sinus tachycardia with premature supraventricular complexes Otherwise normal ECG Electronically signed by : Dale Pepper, 01/17/2019 12:05:39
== END 2019-01-17 09:55 | disposition home or self-care (01) ==
LOC: ER 14:29 → 2ND 15:33 → INTOOBSV 17:23 → 2ND 17:25
PROVIDERS: ADMIT Internal Medicine Adolescent Medicine; ATTEND Internal Medicine Adolescent Medicine
CPT/HCPCS: 36415; 71010; 71045; 80053; 82803; 83605; 83880; 84484; 85007; 85025; 87040; 87275; 87276; 93005; 94640; 94660; 96365; 96367; 96374; 96375; 99285; G0378; J0456